=== PATIENT | male | born 2000 | race Two or more races ===

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

== ENCOUNTER 2025-09-14 07:21 | Emergency (ER) | payer BC ==
[~2025-09-14] VITALS: Ht 172.7 cm; Wt 72.0 kg
--- NOTE | 2025-09-14 07:28 | ED.PDOC ---
HPI (NEURO) HPI Comments 24 year old male with PMHx seizure presents to the ED via EMS with a chief complaint of seizures onset today. Per EMS, patient was running late to work, ran out his house, experienced a tonic-clonic seizure, was found on the ground by dad, stated it lasted approximately 7 minutes. Upon EMS arrival, patient was A&O x3. Upon ED arrival, patient is answering questions, states he is complaint with seizure medication, takes it twice a day, was running late this morning. Last seizure was 2 years ago. Denies fever, chills, chest pain, dizziness, shortness of breath, nausea, vomiting, diarrhea. No other symptoms or modifying factors present at this time. Time Seen by MD: 07:20 Primary Care Provider: RODDY Anders Notes: Medications, Allergies Information Source: Patient, Emergency Med Personnel Mode of Arrival: EMS Severity: Moderate Timing: Hours Duration: Since onset Prehospital treatment: None Seizure Quality: Tonic-clonic Seizure Location: Generalized Circumstances: Spontaneous Before: Normal After: Confusion History of: Seizure Disorder Modifying factors: Nothing Past Medical History PAST MEDICAL HISTORY: Seizures Surgical History: Denies all surgeries Family History Family History: Unknown Social History Smoker: Non-Smoker Alcohol: Denies ETOH Use Drugs: Denies Drug Use Lives In: Home Constitutional: denies: chills, diaphoresis, fatigue, fever, malaise, sweats, weakness, others EENTM: denies: blurred vision, double vision, ear bleeding, ear discharge, ear drainage, ear pain, ear ringing, eye pain, eye redness, hearing loss, mouth pain, mouth swelling, nasal discharge, nose bleeding, nose congestion, nose pain, photophobia, tearing, throat pain, throat swelling, voice changes, others Respiratory: denies: cough, hemoptysis, orthopnea, SOB at rest, shortness of breath, SOB with excertion, stridor, wheezing, others Cardiovascular: denies: chest pain, dizzy spells, diaphoresis, Dyspnea on exertion, edema, irregular heart beat, left arm pain, lightheadedness, palp itations, PND, syncope, others Gastrointestinal: denies: abdomen distended, abdominal pain, blood streaked bowels, constipated, diarrhea, dysphagia, difficulty swallowing, hematemesis, melena, nausea, poor appetite, poor fluid intake, rectal bleeding, rectal pain, vomiting, others Genitourinary: denies: burning, dysuria, flank pain, frequency, hematuria, incontinence, penile discharge, penile sore, pain, testicle pain, testicle swelling, urgency, others Neurological: reports: seizure; denies: dizziness, fainting, headache, left sided numbness, left sided weakness, numbness, paresthesia, pre-existing deficit, right sided numbness, right sided weakness, speech problems, tingling, tremors, weakness, others Musculoskeletal: denies: back pain, gout, joint pain, joint swelling, muscle pain, muscle stiffness, neck pain, others Integumetry: denies: bruises, change in color, change in hair/nails, dryness, laceration, lesions, lumps, rash, wounds, others Allergic/Immunocompromised: denies: Difficulty Healing, Frequent Infections, Hives, Itching, others Hematologic/Lymphatic: denies: anemia, blood clots, easy bleeding, easy bruising, swollen glands, others Endocrine: denies: excessive hunger, excessive sweating, excessive thirst, excessive urination, flushing, intolerance to cold, intolerance to heat, unexplained weight gain, unexplained weight loss, others Psychiatric: denies: anxiety, bipolar disorder, depression, hopeless, panic disorder, schizophrenia, sleepless, suicidal, others All Other Systems: Reviewed and Negative Physical Exam General Appearance: No Apparent Distress HEENT: Normal ENT Inspection, Pharynx Normal, TMs Normal, Other (Abrasions to the tongue on the left side) Neck: Full Range of Motion, Non-Tender, Normal, Normal Inspection Respiratory: Chest Non-Tender, Lungs Clear, No Accessory Muscle Use, No Respiratory Distress, Normal Breath Sounds Cardiovascular: No Edema, No JVD, No Murmur, No Gallop, Normal Peripheral Pulses, Regular Rate/Rhythm Breast Exam: Deferred Gastrointestinal: No Organomegaly, Non Tender, No Pulsatile Mass, Normal Bowel Sounds, Soft Genitalia: Deferred Pelvic: Deferred Rectal: Deferred Extremities: No calf tenderness, Normal capillary refill, Normal inspection, Normal range of motion, Non-tender, No pedal edema Musculoskeletal : Apperance: Normal Neurologic: Alert, 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 Was a procedure done?: No Differential Diagnosis (SZ) Seizure: CVA/TIA, Idiopathic, Syncope X-Ray, Labs, Meds, VS Vital Signs Date Time Temp Pulse Resp B/P (MAP) Pulse Ox O2 Delivery O2 Flow Rate FiO2 09/14/25 08:00 84 09/14/25 07:45 98.0 73 15 117/64 (81) 99 98.0 09/14/25 07:45 88 15 99 Room Air* 0 21 09/14/25 07:29 98.7 99 16 116/73 100 98.7 Lab Test 09/14/25 07:41 Range/Units White Blood Count 6.0 4.4-10.8 10^3/uL Red Blood Count 5.40 4.5-5.90 10^6/uL Hemoglobin 16.6 13.5-17.5 g/dL Hematocrit 47.6 41.0-53.0 % Mean Corpuscular Volume 88.2 80.0-100.0 fL Mean Corpuscular Hemoglobin 30.8 28.0-32.0 pg Mean Corpuscular Hemoglobin Concent 35.0 32.0-36.0 g/dL Red Cell Distribution Width 13.2 11.8-14.3 % Platelet Count 265 140-450 10^3/uL Mean Platelet Volume 7.5 6.9-10.8 fL Neutrophils (%) (Auto) 50.0 37.0-80.0 % Lymphocytes (%) (Auto) 41.5 10.0-50.0 % Monocytes (%) (Auto) 5.5 0.0-12.0 % Eosinophils (%) (Auto) 2.2 0.0-7.0 % Basophils (%) (Auto) 0.8 0.0-2.0 % Neutrophils # (Auto) 3.0 1.6-8.6 10 ^3/uL Lymphocytes # (Auto) 2.5 0.4-5.4 10 ^3/uL Monocytes # (Auto) 0.3 0-1.3 10 ^3/uL Eosinophils # (Auto) 0.1 0-0.8 10 ^3/uL Basophils # (Auto) 0 0-0.2 10 ^3/uL Nucleated Red Blood Cells 0.1 % Sodium Level 140 136-145 mmol/L Potassium Level 4.0 3.5-5.1 mmol/L Chloride Level 103 98-107 mmol/L Carbon Dioxide Level 23 20-31 mmol/L Anion Gap 14 5-15 Blood Urea Nitrogen 15 9-23 mg/dL Creatinine 1.16 0.700-1.30 mg/dL Glomerular Filtration Rate Calc 91 >90 mL/min BUN/Creatinine Ratio 12.9 10.0-20.0 Serum Glucose 123 H 74-106 mg/dL Calcium Level 10.1 8.7-10.4 mg/dL The CBC is within normal limits The chemistry panel is within normal limits At this time, a CAT scan of the head shows: No sign of any abnormalities The patient will be discharged and will follow up with the primary care doctor The patient will return to the emergency department's condition worsens The patient is back to his baseline Images Reviewed?: Images reviewed and evaluated by me Time of 1ST Reevaluation: 07:50 Reevaluation 1ST: Unchanged Patient Education/Counseling: Diagnosis, Treatment, Prognosis, Need For Follow Up Family Education/Counseling: No Family Present Departure 1 Departure Time of Disposition: 08:44 Impression: Primary Impression: Breakthrough seizure Disposition: 01 HOME / SELF CARE / HOMELESS Condition: Fair Discharged With: Self Critical Care Note Critical Care Time?: No Stability Stability form required: No Heart Score Heart Score: Heart Score Response (Comments) Value History N/A 0 EKG N/A 0 Age N/A 0 Risk Factors N/A 0 Troponin N/A 0 Total 0 I personally scribed for ISIDORO AMEZCUA MD ([email or web address]) on 09/14/25 at 07:28. Electronically submitted by Felicia Augustine ([email or web address]). I personally scribed for ISIDORO AMEZCUA MD ([email or web address]) on 09/14/25 at 08:09. Electronically submitted by Felicia Augustine ([email or web address]). ISIDORO AMEZCUA MD Sep 14, 2025 07:28
[2025-09-14 07:45] VITALS: BP 117/64; PULSE 88; RESP 15; TEMP 98; O2SAT 99
[2025-09-14 07:49] LABS: Hematocrit 47.6 % (41.0-53.0); Hemoglobin 16.6 g/dL (13.5-17.5); Mean Corpuscular Hemoglobin 30.8 pg (28.0-32.0); Mean Corpuscular Volume 88.2 fL (80.0-100.0); Nucleated Red Blood Cells % 0.1 %
[2025-09-14 07:54] LABS: Chloride 103 mmol/L (98-107); Potassium 4.0 mmol/L (3.5-5.1); Sodium 140 mmol/L (136-145)
[2025-09-14 07:55] LABS: Anion Gap 14 (5-15); Carbon Dioxide 23 mmol/L (20-31)
[2025-09-14 07:56] LABS: Calcium 10.1 mg/dL (8.7-10.4)
[2025-09-14 08:00] VITALS: PULSE 84
[2025-09-14 08:01] LABS: BUN/Creatinine Ratio 12.9 (10.0-20.0); Blood Urea Nitrogen 15 mg/dL (9-23)
[2025-09-14 08:02] LABS: Glucose 123 mg/dL (74-106)
--- NOTE | 2025-09-14 08:38 | DVH ---
EXAM: CT HEAD WITHOUT CONTRAST INDICATION: Trauma. TECHNIQUE: CT of the head without intravenous contrast. Coronal and sagittal reformatted images are submitted. Radiation Dose : 1. Head: CT Dose: CTDI volume is 54.4 mGy. Dose-length product is 870.1 mGy*cm The dose indicators for CT are the volume Computed Tomography (CT) Dose Index (CTDIvol) and the Dose Length Product (DLP), and are measured in units of mGy and mGy-cm, respectively. These indicators are not patient dose, but values generated from the CT scanner acquisition factors. The report includes radiation exposure data for exposures received during this examination. All CT scans at this medical facility are performed using dose modulation techniques as appropriate to a performed exam including the following: Automated exposure control was utilized; adjustment of the MA and/or KV according to patient size; and use of iterative reconstruction technique. COMPARISON: None FINDINGS: There is no evidence of acute intracranial hemorrhage, extra-axial collection, mass effect, midline shift, herniation or hydrocephalus. The ventricles, sulci and cisterns are age appropriate. The benton-white differentiation is intact. The mastoid air cells are clear. There is mucosal thickening in the sphenoid sinus. No depressed calvarial fracture. The surrounding soft tissues are unremarkable. IMPRESSION: 1. No evidence of acute intracranial abnormality.
[2025-09-14] MEDS: ACETAMINOPHEN 325 MG TAB PO ONE (09:09)
== END 2025-09-14 09:19 | disposition home or self-care (01) ==
LOC: ER 07:21 → EDBD 07:21 → ER 09:19
DX: G40.909 Epilepsy, unspecified, not intractable, without status epilepticus (principal); Z79.899 Other long term (current) drug therapy
CPT/HCPCS: 36415; 70450; 80048; 82947; 85025